=== PATIENT | female | born 1965 | race Two or more races ===

== ENCOUNTER 2023-12-19 08:51 | Emergency (ER) | payer OTHER ==
[~2023-12-19] VITALS: Ht 160 cm; Wt 44.5 kg
[2023-12-19] MEDS ORDERED: CANDESARTAN CILE8 M1 PO (09:04)
[2023-12-19] MEDS ORDERED: ORAPRED ODT10 MG PO (09:04)
[2023-12-19] MEDS ORDERED: ZYLOPRIM100 M1 PO (09:05)
[2023-12-19] MEDS ORDERED: CELLCEPT500 MG PO (09:05)
[2023-12-19] MEDS ORDERED: PRE PROTEIN1 EACH PO (09:05)
[2023-12-19] MEDS ORDERED: RETACRIT10000 UNIT IJ (09:05)
[2023-12-19] MEDS ORDERED: PEPCID AC20 MG PO (09:06)
[2023-12-19] MEDS ORDERED: INTEGRA F CAPS1 EACH PO (09:06)
[2023-12-19] MEDS ORDERED: ORPHENADRINE CITRATE 30 MG/ML AMPUL IM STA (11:26)
[2023-12-19] MEDS ORDERED: DEXAMETHASONE SODIUM PHOSPHATE 4 MG/ML VIAL IM STA (11:26)
[2023-12-19] MEDS ORDERED: GABAPENTIN100 MG PO (11:38)
[2023-12-19] MEDS ORDERED: NORFLEX100MG PO (11:38)
== END 2023-12-19 13:31 | disposition home or self-care (01) ==
LOC: ER 08:53
DX: M54.31 Sciatica, right side (principal)

== ENCOUNTER 2024-01-18 11:46 | Outpatient (CLI) | payer OTHER ==
[~2024-01-18 11:46] MED LIST: CANDESARTAN CILE8 M1 PO; CELLCEPT500 MG PO; GABAPENTIN100 MG PO; INTEGRA F CAPS1 EACH PO; NORFLEX100MG PO; ORAPRED ODT10 MG PO; PEPCID AC20 MG PO; PRE PROTEIN1 EACH PO; RETACRIT10000 UNIT IJ; ZYLOPRIM100 M1 PO
== END 2024-01-18 11:55 | disposition home or self-care (01) ==
LOC: RAD 11:46
PROVIDERS: ATTEND Specialist
DX: J45.998 Other asthma (principal)